=== PATIENT | female | born 1945 | race Caucasian/White ===

== ENCOUNTER → 2019-03-15 | Day surgery (SDC) | payer MEDICARE ==
[2019-03-09 12:00] LABS: BASOPHILS # (AUTO) 0.1 (0.0-0.1); EOSINOPHILS # (AUTO) 0.1 (0.0-0.4); EOSINOPHILS % 1.2 % (0.0-6.0); LYMPHOCYTES # (AUTO) 1.9 (1.0-3.2); LYMPHOCYTES % 17.8 % (18.0-39.1); MEAN CORPUSCULAR HEMOGLOBIN 33.2 pg (28-32); MEAN CORPUSCULAR HGB CONC 33.3 g/dL (31-35); MEAN CORPUSCULAR VOLUME 99.5 fL (81-99); MONOCYTES # (AUTO) 0.7 (0.2-0.8); MONOCYTES % 6.3 % (4.4-11.3); NEUTROPHILS # (AUTO) 7.9 (2.1-6.9); NEUTROPHILS % 73.1 % (38.7-80.0); PLATELET COUNT 298 x10e3/uL (140-360); RED BLOOD COUNT 4.22 x10e6/uL (3.6-5.1); RED CELL DISTRIBUTION WIDTH 12.5 % (11.7-14.4)
[2019-03-09 12:07] LABS: ALANINE AMINOTRANSFERASE 38 IU/L (0-55); ALBUMIN 3.7 g/dL (3.5-5.0); ALBUMIN/GLOBULIN RATIO 0.8 (0.8-2.0); ALKALINE PHOSPHATASE 91 IU/L (40-150); ANION GAP 16.1 mmol/L (8-16); BLOOD UREA NITROGEN 16 mg/dL (7-26); BUN/CREATININE RATIO 19 (6-25); CALCIUM 10.9 mg/dL (8.4-10.2); CARBON DIOXIDE 29 mmol/L (22-29); CHLORIDE 99 mmol/L (98-107); CREATININE, SERUM 0.83 mg/dL (0.57-1.11); EST GLOMERULAR FILTRATION RATE > 60 ML/MIN (60-); GLUCOSE 116 mg/dL (74-118); POTASSIUM 4.1 mmol/L (3.5-5.1); SODIUM 140 mmol/L (136-145)
[~2019-03-15] VITALS: Ht 166.4 cm; Wt 93.4 kg
[2019-03-15] VITALS (13 sets, daily range): BP systolic 104–130; BP diastolic 57–80
[~2019-03-15] MED LIST: ALPRAZOLAM 0.5 MG TAB ONE; ASPIRIN81 M1 PO; ATENOLOL25 MG PO; C-10001000 MG PO; CALCIUM WITH V1 EAC1 PO; CALCIUM600 MG PO; CHONDROITIN SU250 MG PO; D3 + K2 DOTS 11 EACH PO; DIPHENHYDRAMINE HCL 25 MG CAP ONE; FENTANYL CITRATE/PF 100MCG/2 ML INJ ONE; FISH OIL500 M1 PO; GLUCOSAMINE &1 EAC1; GLUCOSAMINE1000 MG PO; HEPARIN SOD (PORCINE) 1000 UNIT/ML 30ML ONE; HEPARIN SOD/SOD CHLORIDE 2,000 ML ONE; HYDROCHLOROTH12.5 M1 PO; IOPAMIDOL 370 MG/ML 200 ML INFUS..BTL INJ ONE; LIDOCAINE HCL 2% LOCAL 20 ML VIAL ONE; LISINOPRIL5 MG PO; MIDAZOLAM HCL 2 MG/2 ML VIAL ONE; NITROGLYCERIN/D5W 200 MCG/ML 250 ML ONE; PLAVIX75 MG PO; RESTASIS1 EACH OP; SIMVASTATIN80 MG PO; SODIUM CHLORIDE 0.9% 1000ML 1,000 ML ONE; VERAPAMIL HCL 2.5 MG/ML 2 ML VIAL ONE
--- OUTSIDE RECORDS SUMMARY | 2019-03-15 13:28 | XMS REPORT | Summary of Care ---
Author Author Swati Santana M.A. Unknown Address Unknown Phone Unavailable Care Team Providers Care Roofing Superintendent Name Role Phone BILL SUMMERS M.D. Unavailable Unavailable LUISITO LOERA DO Unavailable Unavailable Functional Status Name Dates Details Functional status health issues are not documented Status: Name Dates Details Cognitive status health issues are not documented Status: Problems Name Dates Details Active medical history not documented Status: Medications Name Dates Details Medications not documented Allergies and Adverse Reactions Name Dates Details Allergy history not documented Status: Procedures Procedure Dates Details [U] XRAY HIP UNILATERAL MIN 2 VWS RIGHT 28242 Date: 31-May-2018 Immunization Name Dates Details Immunizations not documented Social History Name Dates Details Unknown if ever smoked Vital Signs Date Test Result Details No Known Vitals to report Results Date Description Value Details Results not documented Plan of Care Name Dates Details Planned Observations Planned Goals not documented Planned Encounters Appointment; BILL SUMMERS M.D. On: 03-Jun-2018 13:15 Interventions Provided Labs/Procedures/Imaging* [U] XRAY HIP UNILATERAL MIN 2 VWS RIGHT 10233; To Be Done: 03 Jun 2018 Instructions Name Dates Details Instructions not documented Encounters Appointment; BILL SUMMERS M.D. Encounter Diagnosis: Problem not documented On: 18-Feb-2017 15:30 Appointment; BILL SUMMERS M.D. Encounter Diagnosis: Problem not documented On: 04-May-2017 13:00 Appointment; GRETCHEN MCDONALD P.A. Encounter Diagnosis: Problem not documented On: 15-May-2017 10:15 Appointment; GRETCHEN MCDONALD P.A. Encounter Diagnosis: Problem not documented On: 02-Jul-2017 12:30 Appointment; BILL SUMMERS M.D. Encounter Diagnosis: Problem not documented On: 03-Jun-2018 13:15
--- NOTE | 2019-03-15 18:24 | NUR ---
Dr. Briones at bedside to discuss results of procedure with patient and family.
--- NOTE | 2019-03-15 18:33 | NUR ---
Removed 2ml of air from right wrist TR band. Right wrist site appears to be without signs or symptoms of active bleeding at this time. No distress noted at this time.
--- NOTE | 2019-03-15 18:47 | NUR ---
Attempted to remove 2ml of air from right wrist tr band. Right wrist site appeared to start bleeding. 2ml of air placed back into right wrist TR band. Right wrist site appeared to have stopped bleeding. No distress noted at this time.
--- NOTE | 2019-03-15 19:04 | Operative Report ---
DATE OF PROCEDURE: 03/15/2019 SURGEON: Elpidio Briones MD INDICATION: Coronary artery disease, abnormal stress test. PROCEDURES PERFORMED: 1. Left heart catheterization, selective coronary angiography, left ventriculography. 2. Placement of right wrist TR band. COMPLICATIONS: None. RECOMMENDATIONS: Medical therapy. DESCRIPTION OF PROCEDURE: Access obtained in the right radial artery. A 5-Sinhala sheath was placed. Diagnostic coronary angiogram revealed heavily calcified vessels. Mild coronary artery disease. No focal stenosis or occlusions. Diffuse 20% luminal stenosis. LV ejection fraction 60%. LV end-diastolic pressure of 10. No gradient across the aortic valve pullback. Right wrist TR band applied. The patient was discharged home same day. Elpidio Briones MD [facility] /[id number]
--- NOTE | 2019-03-15 19:15 | NUR ---
1914 Received handoff from Amy GARG Rt TR band approach. Neuro vascular function intact. NO gross issues with pain pallor pressure or dysrhythmia. Back to baseline orientation.Respirations regular 100% room air. Denies necessity to defecate or urinate. Tolerating po intake well. at bedside. Bilateral femoral pulses intact Left iv infusing and no signs infiltration. DC pap filled out and given to pt Both and aware of POC and importance to f/o care. Monitor and vs stable TR band intact.Positive radial pulse. 1929 TR band removed per Deven GARG NO gross issues with pain pallor pressure or dysrhythmia. Neuro vascular function remain intact sterile 2x2 with gauze and Coban in place and splint in placed dressed ,denies discomfort aware of importance of followup care. 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 ds/rn
== END | disposition home or self-care (01) ==
LOC: CATH LAB 13:25
PROVIDERS: ATTEND Internal Medicine Interventional Cardiology
DX: I25.118 Atherosclerotic heart disease of native coronary artery with other forms of angina pectoris (principal); R94.39 Abnormal result of other cardiovascular function study; I73.9 Peripheral vascular disease, unspecified; I10 Essential (primary) hypertension; Z01.812 Encounter for preprocedural laboratory examination; Z79.82 Long term (current) use of aspirin; Z68.34 Body mass index [BMI] 34.0-34.9, adult
CPT/HCPCS: 36415; 80053; 85025; 93458; C1769; C1887; J1644; J2001; J2250; J7030; Q9967

== ENCOUNTER 2024-11-21 14:57 | Observation (INO) | payer MEDICARE ==
[~2024-11-21] VITALS: Ht 167.6 cm; Wt 97.1 kg
[~2024-11-21 14:57] MED LIST changes: -ALPRAZOLAM 0.5 MG TAB ONE; -DIPHENHYDRAMINE HCL 25 MG CAP ONE; -FENTANYL CITRATE/PF 100MCG/2 ML INJ ONE; -HEPARIN SOD (PORCINE) 1000 UNIT/ML 30ML ONE; -HEPARIN SOD/SOD CHLORIDE 2,000 ML ONE; -IOPAMIDOL 370 MG/ML 200 ML INFUS..BTL INJ ONE; -LIDOCAINE HCL 2% LOCAL 20 ML VIAL ONE; -MIDAZOLAM HCL 2 MG/2 ML VIAL ONE; -NITROGLYCERIN/D5W 200 MCG/ML 250 ML ONE; -SODIUM CHLORIDE 0.9% 1000ML 1,000 ML ONE; -VERAPAMIL HCL 2.5 MG/ML 2 ML VIAL ONE
[2024-11-21 15:00] VITALS: TEMP 98.6
[2024-11-21 15:36] LABS: BASOPHILS # (AUTO) 0.1 (0.0-0.1); BASOPHILS % 0.9 % (0.0-1.0); EOSINOPHILS # (AUTO) 0.1 (0.0-0.4); LYMPHOCYTES # (AUTO) 1.3 (1.0-3.2); LYMPHOCYTES % 13.9 % (18.0-39.1); MEAN CORPUSCULAR HEMOGLOBIN 30.4 pg (28-32); MEAN CORPUSCULAR HGB CONC 31.7 g/dL (31-35); MEAN CORPUSCULAR VOLUME 95.8 fL (81-99); MONOCYTES # (AUTO) 0.6 (0.2-0.8); MONOCYTES % 6.6 % (4.4-11.3); NEUTROPHILS % 77.1 % (38.7-80.0); PLATELET COUNT 204 x10e3/uL (140-360); RED BLOOD COUNT 4.28 x10e6/uL (3.6-5.1); RED CELL DISTRIBUTION WIDTH 13.3 % (11.7-14.4); WHITE BLOOD COUNT 9.13 x10e3/uL (4.8-10.8)
[2024-11-21 15:56] LABS: INR 1.04; PARTIAL THROMBOPLASTIN TIME 32.9 seconds (23.8-35.5); PROTHROMBIN TIME 14.2 seconds (11.9-14.5)
[2024-11-21 16:03] LABS: ALBUMIN 3.6 g/dL (3.5-5.0); ALBUMIN/GLOBULIN RATIO 1.1 (0.8-2.0); ANION GAP 16.7 mmol/L (8-16); BILIRUBIN,TOTAL 0.6 mg/dL (0.2-1.2); CALCIUM 9.7 mg/dL (8.4-10.2); CREATININE, SERUM 0.98 mg/dL (0.57-1.11); POTASSIUM 3.7 mmol/L (3.5-5.1); TOTAL PROTEIN 6.9 g/dL (6.5-8.1)
[2024-11-21] MEDS: SODIUM CHLORIDE 0.9% 1000ML 1,000 ML IV ONE (16:14)
[2024-11-21] MEDS ORDERED: SODIUM CHLORIDE FLUSH 10 ML SYR INJ PRN (16:45)
[2024-11-21] MEDS ORDERED: ONDANSETRON HCL INJ 2MG/ML 2ML 2 MG/ML VIAL IV PRN (16:45)
[2024-11-21 17:51] VITALS: PULSE 64; RESP 18
[2024-11-21] MEDS ORDERED: XIIDRA1 EACH OU (18:03)
[2024-11-21] MEDS ORDERED: ATENOLOL50 MG PO (18:03)
[2024-11-21 20:00] VITALS: BP_SYST 128; BP_SYST 137; BP_SYST 146; BP_DIAS 58; BP_DIAS 66; BP_DIAS 73; PULSE 63; PULSE 64; PULSE 71; RESP 16; TEMP 97.3; O2SAT 96; O2SAT 99
[2024-11-21 23:04] VITALS: BP 146/73; PULSE 71; RESP 16; TEMP 97.3; O2SAT 96
[2024-11-22 00:49] VITALS: BP 134/84; PULSE 83; RESP 16; TEMP 97.7; O2SAT 95
[2024-11-22 04:52] VITALS: BP 143/59; PULSE 75; RESP 16; TEMP 97.9; O2SAT 97
[2024-11-22 05:43] LABS: BASOPHILS # (AUTO) 0.1 (0.0-0.1); EOSINOPHILS # (AUTO) 0.1 (0.0-0.4); EOSINOPHILS % 1.6 % (0.0-6.0); HEMATOCRIT 37.8 % (34.2-44.1); HEMOGLOBIN 12.1 g/dL (12.0-16.0); LYMPHOCYTES # (AUTO) 1.6 (1.0-3.2); LYMPHOCYTES % 18.4 % (18.0-39.1); MEAN CORPUSCULAR HEMOGLOBIN 30.8 pg (28-32); MEAN CORPUSCULAR VOLUME 96.2 fL (81-99); MONOCYTES # (AUTO) 0.7 (0.2-0.8); MONOCYTES % 8.4 % (4.4-11.3); NEUTROPHILS # (AUTO) 6.2 (2.1-6.9); PLATELET COUNT 188 x10e3/uL (140-360); RED BLOOD COUNT 3.93 x10e6/uL (3.6-5.1); RED CELL DISTRIBUTION WIDTH 13.2 % (11.7-14.4); WHITE BLOOD COUNT 8.85 x10e3/uL (4.8-10.8)
[2024-11-22 06:09] LABS: ALBUMIN 3.2 g/dL (3.5-5.0); ALBUMIN/GLOBULIN RATIO 1.1 (0.8-2.0); ANION GAP 14.5 mmol/L (8-16); BILIRUBIN,TOTAL 0.5 mg/dL (0.2-1.2); CALCIUM 9.1 mg/dL (8.4-10.2); CREATININE, SERUM 0.76 mg/dL (0.57-1.11); POTASSIUM 3.5 mmol/L (3.5-5.1); TOTAL PROTEIN 6.2 g/dL (6.5-8.1)
[2024-11-22 08:00] VITALS: BP 143/59; PULSE 75; RESP 16; TEMP 97.9; O2SAT 97
[2024-11-22 08:01] VITALS: BP 116/56; PULSE 55; RESP 18; TEMP 98.2; O2SAT 94
[2024-11-22] MEDS ORDERED: MELATONIN 3 MG TAB PO PRN (09:30)
[2024-11-22] MEDS ORDERED: ALBUTEROL/IPRATROPIUM 3 ML NEB NEB PRN (09:30)
[2024-11-22] MEDS ORDERED: ONDANSETRON HCL INJ 2MG/ML 2ML 2 MG/ML VIAL IV PRN (09:30)
[2024-11-22] MEDS ORDERED: ACETAMINOPHEN 325 MG TAB PO PRN (09:30)
[2024-11-22] MEDS ORDERED: METOPROLOL TARTRATE INJ 1 MG/ML VIAL IV PRN (09:30)
[2024-11-22] MEDS: SODIUM CHLORIDE 0.9% 1000ML 1,000 ML IV SCH (11:07)
[2024-11-22 11:49] VITALS: BP 123/52; PULSE 62; RESP 19; TEMP 97.6; O2SAT 97
[2024-11-22 12:51] LABS: BACTERIA,URINE FEW /HPF; BILIRUBIN,URINE NEGATIVE (NEGATIVE); CLARITY,URINE CLEAR (CLEAR); COLOR,URINE YELLOW (YELLOW); EPITHELIAL CELLS,URINE FEW /LPF; GLUCOSE, URINE NEGATIVE (NEGATIVE); KETONES,URINE NEGATIVE (NEGATIVE); LEUKOCYTE ESTERASE ,URINE NEGATIVE (NEGATIVE); NITRITE,URINE NEGATIVE (NEGATIVE); PH,URINE 6 (5 - 7); PROTEIN,URINE DIPSTICK NEGATIVE (NEGATIVE); URINE UROBILINOGEN 0.2 mg/dL (0.2 - 1); WBC,URINE (MAN) 0-5 /HPF (0-5)
[2024-11-22] MEDS ORDERED: ECOTRIN81 MG PO (15:35)
[2024-11-23] MEDS ORDERED: SENNOSIDES 8.6 MG TAB PO SCH (09:00)
[2024-11-23] MEDS ORDERED: SIMVASTATIN 40 MG TAB PO SCH (09:00)
== END 2024-11-22 15:53 | disposition home or self-care (01) ==
LOC: ER 15:20 → ERHOLD 16:44 → MED/SURG 18:55
PROVIDERS: ADMIT Internal Medicine; ATTEND Internal Medicine
DX: I95.1 Orthostatic hypotension (principal); N17.9 Acute kidney failure, unspecified; E86.0 Dehydration; I48.20 Chronic atrial fibrillation, unspecified; I25.10 Atherosclerotic heart disease of native coronary artery without angina pectoris; Z95.5 Presence of coronary angioplasty implant and graft
CPT/HCPCS: 36415 ×2; 80053 ×2; 81001; 82948; 84484; 85025 ×2; 85610; 85730; 93005; 97161; 99284; G0378 ×2; J7030